=== PATIENT | female | born 1970 | race Caucasian/White ===

== ENCOUNTER 2019-08-03 08:00 | Inpatient (IN) | payer BC ==
[2019-09-07] MEDS ORDERED: Lidocaine 1%/Sod Bicarbonate in NS 8.4% 1 ML Syringe IDERM PRN (00:01)
[2019-09-07] MEDS ORDERED: Sodium Chloride 0.9% 10 ML Syringe FLUSH PRN (00:01)
[2019-09-07] MEDS ORDERED: Bupivacaine 0.5% 30 ML SDV ONE (07:25)
[2019-09-07] MEDS ORDERED: Lactated Ringers 1,000 ML ONE (07:26)
[2019-09-07] MEDS ORDERED: Ondansetron 4 MG/2 ML SDV ONE (07:26)
[2019-09-07] MEDS ORDERED: Propofol 200 MG/20 ML SDV ONE ×3 (07:26→10:34)
[2019-09-07] MEDS ORDERED: ceFAZolin 1 GM Vial ONE (07:26)
[2019-09-07] MEDS ORDERED: Midazolam 1 MG/ML 2 ML SDV ONE (07:26)
[2019-09-07] MEDS ORDERED: fentaNYL 250 MCG/5 ML SDV ONE (07:26)
[2019-09-07] MEDS ORDERED: Rocuronium 50 MG/5 ML Vial ONE ×2 (07:26→09:10)
[2019-09-07] MEDS ORDERED: Lidocaine 1% 4 ML ONE (07:26)
[2019-09-07] MEDS: Lactated Ringers 1,000 ML IV SCH ×2 (07:27→11:27)
[2019-09-07] MEDS ORDERED: Ketorolac 30 MG/ML SDV ONE (07:27)
[2019-09-07] MEDS ORDERED: Dexamethasone 4 MG/ML 5 ML MDV ONE (07:27)
[2019-09-07] MEDS ORDERED: Albuterol 0.083% 2.5 MG/3 ML Neb Soln NEB SCH (07:45)
--- NOTE | 2019-09-07 08:12 | PCM.PREANE ---
Preanesthetic Assessment - Anesthesia/Transfusion/Family Hx Anesthesia History: Prior Anesthesia Without Reaction Family History of Anesthesia Reaction: No Transfusion History: No Prior Transfusion(s) - Review of Systems General: No Symptoms Pulmonary: No Symptoms (Smoker, just under a pack a day. ) Cardiovascular: No Symptoms Gastrointestinal: No Symptoms Neurological: No Symptoms Other: Reports: Diabetes (Type II, Blood glucose 200. ) - Physical Assessment NPO Status Date: 09/07/19 NPO Status Time: 06:30 (Water) Vital Signs: Last Vital Signs Temp 36.8 C 09/07/19 07:15 Pulse 85 09/07/19 07:15 Resp 16 09/07/19 07:15 BP 150/89 H 09/07/19 07:15 Pulse Ox 96 09/07/19 07:36 Height: 1.7 m Weight: 106.594 kg ASA Class: 2 Mental Status: Alert & Oriented x3 Airway Class: Mallampati = 1 Dentition: Reports: Normal Dentition Thyro-Mental Finger Breadths: 3 Mouth Opening Finger Breadths: 3 ROM/Head Extension: Full Lungs: Clear to Auscultation, Normal Respiratory Effort Cardiovascular: Regular Rate, Regular Rhythm - Lab Values: Laboratory Last Values WBC 7.29 K/mm3 (3.98-10.04) 09/07/19 07:27 RBC 4.76 M/mm3 (3.98-5.22) 09/07/19 07:27 Hgb 12.0 gm/dl (11.2-15.7) 09/07/19 07:27 Hct 37.3 % (34.1-44.9) 09/07/19 07:27 MCV 78.4 fl (79.4-94.8) L 09/07/19 07:27 MCH 25.2 pg (25.6-32.2) L 09/07/19 07:27 MCHC 32.2 g/dl (32.2-35.5) 09/07/19 07:27 RDW Std Deviation 55.3 fL (36.4-46.3) H 09/07/19 07:27 Plt Count 326 K/mm3 (182-369) 09/07/19 07:27 MPV 9.1 fl (9.4-12.3) L 09/07/19 07:27 Neut % (Auto) 61.9 % (34.0-71.1) 09/07/19 07:27 Lymph % (Auto) 23.5 % (19.3-51.7) 09/07/19 07:27 Leake % (Auto) 9.1 % (4.7-12.5) 09/07/19 07:27 Eos % (Auto) 4.1 (0.7-5.8) 09/07/19 07:27 Baso % (Auto) 1.0 % (0.1-1.2) 09/07/19 07:27 Neut # (Auto) 4.52 K/mm3 (1.56-6.13) 09/07/19 07:27 Lymph # (Auto) 1.71 K/mm3 (1.18-3.74) 09/07/19 07:27 Leake # (Auto) 0.66 K/mm3 (0.24-0.36) H 09/07/19 07:27 Eos # (Auto) 0.30 K/mm3 (0.04-0.36) 09/07/19 07:27 Baso # (Auto) 0.07 K/mm3 (0.01-0.08) 09/07/19 07:27 Sodium 139 mEq/L (136-145) 09/07/19 07:27 Potassium 4.3 mEq/L (3.5-5.1) 09/07/19 07:27 Chloride 104 mEq/L (98-107) 09/07/19 07:27 Carbon Dioxide 24 mEq/L (21-32) 09/07/19 07:27 Anion Gap 15.3 (5-15) H 09/07/19 07:27 BUN 13 mg/dL (7-18) 09/07/19 07:27 Creatinine 0.9 mg/dL (0.55-1.02) 09/07/19 07:27 Est Cr Clr Drug Dosing 74.34 mL/min 09/07/19 07:27 Estimated GFR (MDRD) > 60 mL/min (>60) 09/07/19 07:27 BUN/Creatinine Ratio 14.4 (14-18) 09/07/19 07:27 Glucose 197 mg/dL (74-106) H 09/07/19 07:27 POC Glucose 200 mg/dL (70-105) H 09/07/19 07:27 Calcium 9.1 mg/dL (8.5-10.1) 09/07/19 07:27 Urine HCG, Qual Negative (NEGATIVE) 09/07/19 07:12 - Allergies Allergies/Adverse Reactions: Allergies Allergy/AdvReac Type Severity Reaction Status Date / Time Penicillins Allergy Anaphylactic Verified 09/07/19 07:59 Shock - Anesthesia Plan Pre-Op Medication Ordered: Anxiolytic - Acknowledgements Anesthesia Type Planned: General Anesthesia Pt an Appropriate Candidate for the Planned Anesthesia: Yes Alternatives and Risks of Anesthesia Discussed w Pt/Guardian: Yes Pt/Guardian Understands and Agrees with Anesthesia Plan: Yes PreAnesthesia Questionnaire HEENT History: Reports: Impaired Vision, Other (See Below) Other HEENT History: WEARS GLASSES Cardiovascular History: Reports: None Respiratory History: Reports: None Gastrointestinal History: Reports: None Genitourinary History: Reports: STD GLASS INSERTER History: Reports: Other (See Below) Other OB/BYN History: CERVICAL FIBROID, HOT FLASHES, GENITAL WARTS, TERMINATED Musculoskeletal History: Reports: None Neurological History: Reports: None Psychiatric History: Reports: None Endocrine/Metabolic History: Reports: None Hematologic History: Reports: Anemia Immunologic History: Reports: None Oncologic (Cancer) History: Reports: None Dermatologic History: Reports: None - Past Surgical History Head Surgeries/Procedures: Reports: None Cardiovascular Surgical History: Reports: None Respiratory Surgical History: Reports: None GI Surgical History: Reports: Cholecystectomy Endocrine Surgical History: Reports: None Neurological Surgical History: Reports: None Musculoskeletal Surgical History: Reports: None Oncologic Surgical History: Reports: None Dermatological Surgical History: Reports: None - SUBSTANCE USE Smoking Status *Q: Current Every Day Smoker Recreational Drug Use History: No - HOME MEDS Home Medications: Home Meds Ferrous Sulfate [Iron] 325 mg PO DAILY 09/06/19 [History] Ibuprofen [Advil Liqui-Gels] 200 - 400 mg PO BID PRN 09/06/19 [History] metFORMIN [Glucophage] 500 mg PO BID 09/06/19 [History] - CURRENT (IN HOUSE) MEDS Current Meds: Current Medications Albuterol (Proventil Neb Soln) 2.5 mg NEB ONETIME JUSTINE Last Admin: 09/07/19 07:53 Dose: 2.5 mg Lactated Ringer's (Ringers, Lactated) 1,000 mls @ 125 mls/hr IV ASDIRECTED JUSTINE Stop: 09/07/19 23:00 Last Admin: 09/07/19 07:27 Dose: 125 mls/hr Lidocaine/Sodium Bicarbonate (Buffered Lidocaine 1% In Ns 8.4%) 0.25 ml IDERM ONETIME PRN PRN Reason: Prior to IV Start Stop: 09/07/19 18:00 Last Admin: 09/07/19 07:27 Dose: 0.25 ml Sodium Chloride (Saline Flush) 10 ml FLUSH ASDIRECTED PRN PRN Reason: Keep Vein Open Stop: 09/07/19 18:00 Discontinued Medications Bupivacaine HCl (Marcaine 0.5%) Confirm Administered Dose 30 ml .ROUTE .STK-MED ONE Stop: 09/07/19 07:26 Cefazolin Sodium (Ancef) Confirm Administered Dose 2 gm .ROUTE .STK-MED ONE Stop: 09/07/19 07:27 Dexamethasone (Dexamethasone) Confirm Administered Dose 20 mg .ROUTE .STK-MED ONE Stop: 09/07/19 07:28 Fentanyl (Sublimaze) Confirm Administered Dose 250 mcg .ROUTE .STK-MED ONE Stop: 09/07/19 07:27 Lidocaine HCl (Xylocaine-Mpf 1%) Confirm Administered Dose 4 mls @ as directed .ROUTE .STK-MED ONE Stop: 09/07/19 07:27 Lactated Ringer's (Ringers, Lactated) Confirm Administered Dose 1,000 mls @ as directed .ROUTE .STK-MED ONE Stop: 09/07/19 07:27 Ketorolac Tromethamine (Toradol) Confirm Administered Dose 30 mg .ROUTE .STK- MED ONE Stop: 09/07/19 07:28 Lidocaine/Epinephrine (Xylocaine 1% With Epinephrine 1:100,000) Confirm Administered Dose 20 ml .ROUTE .STK-MED ONE Stop: 09/07/19 07:26 Midazolam HCl (Versed 1 Mg/Ml) Confirm Administered Dose 2 mg .ROUTE .STK-MED ONE Stop: 09/07/19 07:27 Ondansetron HCl (Zofran) Confirm Administered Dose 4 mg .ROUTE .STK-MED ONE Stop: 09/07/19 07:27 Propofol (Diprivan 20 Ml) Confirm Administered Dose 400 mg .ROUTE .STK-MED ONE Stop: 09/07/19 07:27 Rocuronium [place] (Zemuron) Confirm Administered Dose 50 mg .ROUTE .[facility] ONE Stop: 09/07/19 07:27
[2019-09-07] MEDS ORDERED: HYDROmorphone 0.5 MG/0.5 ML Syringe ONE (08:41)
[2019-09-07] MEDS ORDERED: diphenhydrAMINE 50 MG/ML SDV ONE (08:49)
[2019-09-07] MEDS: Lidocaine 1% with EPINEPHrine 1:100,000 20 ML MDV ONE ×2 (08:51→09:06)
[2019-09-07] MEDS ORDERED: Sodium Chloride 0.9% 50 ML SDV ONE (08:52)
[2019-09-07] MEDS ORDERED: Vasopressin 20 Units/1 ML MDV IVPUSH ONE (08:53)
[2019-09-07] MEDS ORDERED: Metoclopramide 10 MG/2 ML SDV ONE (09:10)
[2019-09-07] MEDS ORDERED: HYDROmorphone 0.5 MG/0.5 ML Syringe IVPUSH PRN (09:15)
[2019-09-07] MEDS ORDERED: fentaNYL 100 MCG/2 ML SDV IVPUSH PRN (09:15)
[2019-09-07] MEDS ORDERED: Ondansetron 4 MG/2 ML SDV IVPUSH PRN (09:15)
[2019-09-07] MEDS ORDERED: fentaNYL 100 MCG/2 ML SDV ONE (09:41)
[2019-09-07] MEDS ORDERED: Neostigmine Methylsulfate 1 MG/ML 5 ML Syringe ONE (09:52)
[2019-09-07] MEDS ORDERED: Albuterol 6.7 GM Inhaler INH ONE (10:35)
--- NOTE | 2019-09-07 11:05 | PCM.POSTAN ---
POST ANESTHESIA ASSESSMENT - MENTAL STATUS Mental Status: Alert, Oriented - VITAL SIGNS Vital Signs: Last Vital Signs Temp 36.8 C 09/07/19 07:15 Pulse 85 09/07/19 07:15 Resp 16 09/07/19 07:15 BP 150/89 H 09/07/19 07:15 Pulse Ox 96 09/07/19 07:36 - RESPIRATORY Respiratory Status: Respiratory Rate WNL, Airway Patent, O2 Saturation Stable, Supplemental Oxygen - CARDIOVASCULAR CV Status: Pulse Rate WNL, Blood Pressure Stable - GASTROINTESTINAL GI Status: No Symptoms - PAIN Pain Score: 0 - POST OP HYDRATION Hydration Status: Adequate & Stable
--- NOTE | 2019-09-07 11:48 | PCM.OPNOTE ---
- General Post-Op/Procedure Note Date of Surgery/Procedure: 09/07/19 Operative Procedure(s): Excision of cervical fibroid. Total vaginal hysterectomy Findings: SVE/SSE with large fibroid noted which at this time is prolapsed through the cervix. Is about 6 cm in diameter and feels to be a narrow stalk extending up into the cervix. Once removed remainder of uterus feels normal. Cervix has an almost parous appearance due to distension from fibroid. Once uterus removed only able to slightly visualize ovaries, but grossly normal. Pre Op Diagnosis: Menorrhagia. Cervical fibroid Post-Op Diagnosis: Same Anesthesia Technique: General ET Tube Primary Surgeon: Rosa Owens Secondary Surgeon: Jacqueline Cuadra Anesthesia Provider: Yael Mathis Reason Department Coordinator Was Necessary: BMI of patient, speed/safety of procedure Pathology: Cervix and fibroid sent to pathology for further evaluation Fluid Replacement, Intraop: 1,800 Output, Urine Amount: 175 EBL in mLs: 200 Complications: None Condition: Good Free Text/Narrative:: The risks, benefits, indications, potential complications, and alternatives were explained to the patient and informed consent obtained. The patient was taken to the Operating Room where general anesthesia was induced without complication and found to be adequate. The patient was placed in dorsal lithotomy with miguel stirrups and an exam under anesthesia revealed the findings detailed above. The patient was then prepped and draped in the usual sterile fashion. Floley catheter was placed into the bladder.. A weighted speculum was placed in the vagina and the fibroid was grasped with a tenaculum. An EndoLoop was fed around cervix and tightened at the stalk. Scalpel then used to excise fibroid in several large pieces. After this portion of procedure cervix able to be seen well and appeared normal other than slightly distended. The cervix was injected circumferentially with dilute 1% lidocaine with epinephrine. The cervix was then circumferentially incised with a scalpel. The posterior cul-de-sac was entered sharply. The short weighted speculum was replaced with a long weighted speculum into the peritoneal cavity posteriorly. The bladder was dissected away from the pubovesical cervical fascia anteriorly with a sponge and blunt dissection. The uterosacral ligaments were grasped on either side with the Ligasure, cauterized, and transected. Hemostasis was assured. A raytec was used for further blunt dissection of the bladder away from the pubovesical cervical fascia and then the anterior cul de sac was entered sharply with Metzenbaum scissors. The cardinal ligaments were then serially clamped on both sides with the Ligasure, cauterized, and transected. The uterine arteries were then clamped with the Ligasure, cauterized, and transected. Hemostasis was adequate. Both cornua were then clamped across with the Ligasure, cauterized, and transected. Specimen removed. Hemostasis noted of pedicles. The posterior peritoneum was closed with a running, locked 0 vicryl suture. Next Rex seal placed across pedicles due to slight abraided appearance of cuff at lateral apexes. The vaginal cuff was then closed in a running locked fashion with 0-Vicryl. Hemostasis was noted. All sponge, lap, needle, and instrument counts were correct x 2. The patient tolerated the procedure well and there were no complications.
--- NOTE | 2019-09-07 12:35 | PCM48HPAN ---
Post Anesthesia Note - EVALUATION WITHIN 48HRS OF ANESTHETIC Vital Signs in Normal Range: Yes Patient Participated in Evaluation: Yes Respiratory Function Stable: Yes Airway Patent: Yes Cardiovascular Function Stable: Yes Hydration Status Stable: Yes Pain Control Satisfactory: Yes Nausea and Vomiting Control Satisfactory: Yes Mental Status Recovered: Yes Vital Signs: Last Vital Signs Temp 36.7 C 09/07/19 12:30 Pulse 61 09/07/19 12:30 Resp 14 09/07/19 12:30 BP 113/64 09/07/19 12:30 Pulse Ox 100 09/07/19 12:30
== END 2019-09-07 15:10 | disposition home or self-care (01) | DRG 519 ==
LOC: JD.MS 09-07 07:02 → JD.OB 09-07 07:02 → UNDOADMIN 09-07 07:02
PROVIDERS: ADMIT Obstetrics & Gynecology; ATTEND Obstetrics & Gynecology
PROC: 0UT97ZZ Resection of Uterus, Via Natural or Artificial Opening (ICD-10-PCS; principal; 2019-09-07)
DX: D25.9 Leiomyoma of uterus, unspecified (principal); D64.9 Anemia, unspecified; E11.9 Type 2 diabetes mellitus without complications; I10 Essential (primary) hypertension; F17.210 Nicotine dependence, cigarettes, uncomplicated; Z90.49 Acquired absence of other specified parts of digestive tract; Z88.0 Allergy status to penicillin
CPT/HCPCS: 00944; 36415; 80048; 81025; 82962; 85025; 86850; 86900; 86901; 94640; A9270-GY; J0690; J1100; J1170; J1200; J1885; J2001; J2250; J2405; J2704; J2710; J2765; J3010; J3490; J7120